=== PATIENT | female | born 1995 | race Two or more races ===

== ENCOUNTER 2020-10-04 14:56 | Outpatient (REF) | payer OTHER, SELFPAY ==
[2020-10-04 16:38] LABS: COVID-19 Test Negative (Negative)
== END 2020-10-04 14:57 | disposition home or self-care (01) ==
LOC: HO.EMPCOV 14:56
PROVIDERS: Visit Provider Internal Medicine
DX: Z20.822 Contact with and (suspected) exposure to COVID-19 (principal)
CPT/HCPCS: 36415; 87635; C9803

== ENCOUNTER 2021-08-25 18:54 | Outpatient (REF) | payer OTHER, SELFPAY ==
[2021-08-25 19:24] LABS: COVID-19 Test Negative (Negative)
== END 2021-08-25 18:55 | disposition home or self-care (01) ==
LOC: HO.LAB 18:54
PROVIDERS: PCP Internal Medicine; Visit Provider Internal Medicine
DX: Z20.822 Contact with and (suspected) exposure to COVID-19 (principal)
CPT/HCPCS: 36415; 87635

== ENCOUNTER 2021-09-27 07:57 | Outpatient (REF) | payer OTHER, SELFPAY ==
--- NOTE | 2021-09-27 13:12 | PFT_ITS ---
Forced vital capacity 90%, FEV1 97%, FEF 25/75 134%, and MVV is 93. Post bronchodilator therapy, no significant change. Total lung capacity 88%. Residual volume 69. Diffusion capacity 107. CONCLUSION: Normal pulmonary function test, and there is no significant obstructive or restrictive pulmonary disorder. MD LEXI Galicia/MODL / [id number]
== END 2021-09-27 07:58 | disposition home or self-care (01) ==
LOC: HO.RESP 07:57
PROVIDERS: PCP Internal Medicine; Visit Provider Internal Medicine Pulmonary Disease
DX: J45.909 Unspecified asthma, uncomplicated (principal); Z91.09 Other allergy status, other than to drugs and biological substances
CPT/HCPCS: 94060; 94727; 94729

== ENCOUNTER 2021-10-02 09:04 | Outpatient (REF) | payer OTHER, SELFPAY ==
[2021-10-02 10:05] LABS: MANUAL DIFF FLAG NO
[2021-10-02 10:46] LABS: Basophils Absolute Auto 0.1 X10*3/uL (0.0-0.2); Basophils Percent Auto 0.8 % (0-2); Eosinophils Absolute Auto 0.2 X10*3/uL (0.0-0.4); Hemoglobin 13.5 g/dl (12.0-16.0); Imm Gran Abs Auto 0.02 X10*3/uL (0.00-0.03); Imm Gran Pct Auto 0.3 % (0.0-0.4); Lymphocytes Absolute Auto 1.9 X10*3/uL (1.2-4.9); Lymphocytes Percent Auto 24.4 % (20-40); Mean Corpuscular HGB Conc 32.9 g/dl (31.0-35.0); Mean Corpuscular Hemoglobin 29.7 pg (27.0-33.0); Mean Corpuscular Volume 90.1 fL (80.0-98.0); Mean Platelet Volume 10.3 fL (9.4-12.3); Monocytes Absolute Auto 0.5 X10*3/uL (0.1-1.2); Monocytes Percent Auto 6.8 % (2-11); Neutrophils Percent Auto 64.7 % (45-73); Platelet Count 334 X10*3/uL (160-400); Red Blood Count 4.55 X10*6/uL (4.20-5.50); Red Cell Distribution Width 11.6 % (11.0-16.0); White Blood Count 7.7 X10*3/uL (4.8-10.8)
== END 2021-10-02 09:05 | disposition home or self-care (01) ==
LOC: HO.LAB 09:04
PROVIDERS: PCP Internal Medicine; Visit Provider Internal Medicine Pulmonary Disease
DX: J45.909 Unspecified asthma, uncomplicated (principal); Z91.09 Other allergy status, other than to drugs and biological substances
CPT/HCPCS: 36415; 82785; 85025; 86003

== ENCOUNTER 2022-01-17 08:19 | Outpatient (REF) | payer OTHER, SELFPAY | END 2022-01-17 08:20 | disposition home or self-care (01) | LOC: HO.MDS 08:19 | PROVIDERS: Visit Provider Internal Medicine Pulmonary Disease | DX: J45.50 Severe persistent asthma, uncomplicated (principal) | CPT/HCPCS: 96372; J2357 ==

== ENCOUNTER 2022-06-03 10:32 | Outpatient (REF) | payer OTHER, SELFPAY | END 2022-06-03 10:33 | disposition home or self-care (01) | LOC: HO.MDS 10:32 | PROVIDERS: Visit Provider Internal Medicine Pulmonary Disease | DX: J45.50 Severe persistent asthma, uncomplicated (principal) | CPT/HCPCS: 96372; J2357 ==

== ENCOUNTER 2022-07-01 10:48 | Outpatient (REF) | payer OTHER, SELFPAY | END 2022-07-01 10:49 | disposition home or self-care (01) | LOC: HO.MDS 10:48 | PROVIDERS: Visit Provider Internal Medicine Pulmonary Disease | DX: J45.50 Severe persistent asthma, uncomplicated (principal) | CPT/HCPCS: 96372; J2357 ==

== ENCOUNTER 2023-03-26 14:11 | Outpatient (AMB) | payer OTHER, SELFPAY ==
--- NOTE | 2023-03-26 14:15 | A.OFFVIS_ITS ---
Intake Vital Signs 03/26/23 14:16 Height 5 ft 5 in Weight 166 lb 7.184 oz BMI 27.7 BP 132/68 Blood Pressure Location Rt brachial Position Sitting Pulse 112 H Pulse Source Pulse Oximeter Pulse Oximetry (%) 98 Oxygen Delivery Method Room Air Intake Visit Reasons: Asthma Intake Note: Pt presents for a f/u and reports everything is going well. Wire Stitcher Required: No Allergies Sulfa (Sulfonamide Antibiotics) Allergy (Unknown, Verified 03/26/23 14:20) Unknown HPI Asthma HPI Details 28-year-old lady, nonsmoker, followed for underlying severe persistent asthma with significant allergic component. Patient's symptoms previously were well controlled on Xolair, Breo, and albuterol MDI. However, at this time Xolair has a very high co-pay and patient is not able to afford it. Thus, her symptoms are not as well controlled. Though she denies an acute exacerbation. [facility] Social History (Updated 03/26/23 @ 14:23 by Gayle Turpin [facility]) Patient Tobacco Use Status: Never used Tobacco Review of Systems Const Denies daytime sleepiness, Denies excessive sweating, Denies fatigue, Denies fever(s), Denies lethargy, Denies malaise, Denies night sweats, Denies snoring and Denies weight loss Eyes Denies blurry vision and Denies itchy eyes ENT Denies nasal congestion, Denies post nasal drip, Denies sinus pain, Denies sinus pressure and Denies other ( Thrush) Card Denies chest pain, Denies pedal edema, Denies dyspnea, Denies orthopnea and Denies paroxysmal nocturnal dyspnea Resp Denies cough, Denies hemoptysis, Denies excessive phlegm production, Denies dyspnea, Denies snoring and Denies wheezing GI Denies abdominal pain and Denies heartburn Musc Denies myalgias, Denies arthralgias and Denies joint swelling Skin/Breast Denies rash Neuro Denies memory loss and Denies seizure-like activity Psych Denies abnormal sleep pattern, Denies anxiety and Denies memory loss Endo Denies excessive sweating, Denies fatigue and Denies heat intolerance Brandon/Lymph Denies easy bruising Aller/Immun Denies itchy eyes, Denies seasonal rhinorrhea and Denies wheezing Physical Exam Vital Signs: Last Vital Signs Pulse 112 H 07/26/23 14:16 BP 132/68 03/26/23 14:16 Pulse Ox 98 03/26/23 14:16 Oxygen Delivery Method Room Air 03/26/23 14:16 BMI result Body Mass Index 27.7 Const General: no acute distress and alert Nutritional Appearance: not obese Orientation/consciousness: Other orientation findings ( oriented) HEENT Head: Yes atraumatic Eyes General: appearance normal, both eyes and all related structures Sclerae: sclerae normal EOM: EOMs intact bilaterally Neck Neck: Yes supple Lymphatic: no lymphadenopathy noted Resp Effort & Inspection: normal respiratory effort and no use of accessory muscles Auscultation: clear to auscultation bilaterally Cardio Rate: regular rate Rhythm: regular rhythm Heart sounds: no gallops, no murmurs and no rubs Skin General skin exam: other ( warm) Extrem General: No clubbing, No cyanosis and No edema Assessment & Plan Assessment & Plan (1) Asthma: Code(s): J45.909 - Unspecified asthma, uncomplicated Plan: Suboptimally controlled on Breo and albuterol MDI. Will request Xolair for home injections. (2) Environmental allergies: Code(s): Z91.09 - Other allergy status, other than to drugs and biological substances Plan: Suboptimal control. Will start on Singulair and request Xolair for home injections. Medications: New montelukast 10 mg PO DAILY 30 days 30 tabs 6RF Changed From fluticasone furoate-vilanterol 200-25 mcg/dose (Breo Ellipta) 1 ea PO DAILY 60 ea 0RF To Breo Ellipta 200-25 mcg/dose (fluticasone furoate-vilanterol) 1 ea PO DAILY 30 days 1 ea 12RF NS From albuterol sulfate 90 mcg/actuation (ProAir HFA) 2 puffs inhalation QID To albuterol sulfate 90 mcg/actuation (ProAir HFA) 2 puffs inhalation QID 30 days 1 ea 12RF Coding Level of Care Code Est Pt Level 4 (17527) Diagnoses Asthma J45.909 Environmental allergies Z91.09
[2023-03-26 14:16] VITALS: BP 132/68; PULSE 112; O2SAT 98; BMI 27.7
== END 2023-03-26 14:30 | disposition home or self-care (01) ==
PROVIDERS: PCP Internal Medicine; Visit Provider Internal Medicine Pulmonary Disease
DX: J45.909 Unspecified asthma, uncomplicated (principal); Z91.09 Other allergy status, other than to drugs and biological substances
CPT/HCPCS: 99214

== ENCOUNTER → 2023-03-26 14:11 | Outpatient (BNVA) | payer OTHER, SELFPAY | PROVIDERS: PCP Internal Medicine; Visit Provider Internal Medicine Pulmonary Disease ==

== ENCOUNTER 2024-01-16 14:25 | Outpatient (AMB) | payer OTHER, SELFPAY ==
[2024-01-16 14:30] VITALS: BP 126/78; PULSE 100; O2SAT 99; BMI 29.0
--- NOTE | 2024-01-16 14:30 | MHC.OFFVIS ---
Vital Signs 01/16/24 14:30 Height 5 ft 5 in Weight 174 lb 2.643 oz BMI 29.0 BP 126/78 Blood Pressure Location Rt brachial Position Sitting Pulse 100 Pulse Source Doppler Pulse Oximetry (%) 99 Oxygen Delivery Method Room Air Intake Visit Reasons: asthma Allergies Sulfa (Sulfonamide Antibiotics) Allergy (Unknown, Verified 03/26/23 14:20) Unknown HPI HPI asthma: Details: 28-year-old lady, nonsmoker, followed for underlying severe persistent asthma with significant allergic component. Patient's symptoms previously were well controlled on Xolair, Breo, and albuterol MDI. Patient has recently ran out of Xolair and for the last 2 months she states that her symptoms been still controlled on Breo and albuterol MDI with Singulair. She denies recent exacerbations. [facility] Social History (Updated 03/26/23 @ 14:23 by Gayle Turpin [facility]) Patient Tobacco Use Status: Never used Tobacco Review of Systems Const Denies daytime sleepiness, Denies excessive sweating, Denies fatigue, Denies fever(s), Denies lethargy, Denies malaise, Denies night sweats, Denies snoring and Denies weight loss Eyes Denies blurry vision and Denies itchy eyes ENT Denies nasal congestion, Denies post nasal drip, Denies sinus pain, Denies sinus pressure and Denies other ( Thrush) Card Denies chest pain, Denies pedal edema, Denies dyspnea, Denies orthopnea and Denies paroxysmal nocturnal dyspnea Resp Denies cough, Denies hemoptysis, Denies excessive phlegm production, Denies dyspnea, Denies snoring and Denies wheezing GI Denies abdominal pain and Denies heartburn Musc Denies myalgias, Denies arthralgias and Denies joint swelling Skin/Breast Denies rash Neuro Denies memory loss and Denies seizure-like activity Psych Denies abnormal sleep pattern, Denies anxiety and Denies memory loss Endo Denies excessive sweating, Denies fatigue and Denies heat intolerance Brandon/Lymph Denies easy bruising Aller/Immun Denies itchy eyes, Denies seasonal rhinorrhea and Denies wheezing Physical Exam Vital Signs: Last Vital Signs Pulse 100 01/16/24 14:30 BP 126/78 01/16/24 14:30 Pulse Ox 99 05/17/24 14:30 Oxygen Delivery Method Room Air 05/17/24 14:30 BMI result Body Mass Index 29.0 Const General: no acute distress and alert Nutritional Appearance: not obese Orientation/consciousness: Other orientation findings ( oriented) HEENT Head: Yes atraumatic Eyes General: appearance normal, both eyes and all related structures Sclerae: sclerae normal EOM: EOMs intact bilaterally Neck Neck: Yes supple Lymphatic: no lymphadenopathy noted Resp Effort & Inspection: normal respiratory effort and no use of accessory muscles Auscultation: clear to auscultation bilaterally Cardio Rate: regular rate Rhythm: regular rhythm Heart sounds: no gallops, no murmurs and no rubs Skin General skin exam: other ( warm) Extrem General: No clubbing, No cyanosis and No edema Assessment & Plan Assessment & Plan (1) Asthma: Code(s): J45.909 - Unspecified asthma, uncomplicated Category: Medical Plan: Now well controlled on Breo, Singulair, and albuterol MDI. Continue current regimen. Will hold off on continuation of Xolair this time. (2) Environmental allergies: Code(s): Z91.09 - Other allergy status, other than to drugs and biological substances Category: Medical Plan: Well controlled on Singulair. If control lapses, will consider restarting Xolair. Coding Level of Care Code Est Pt Level 4 (04252) Diagnoses Asthma J45.909 Environmental allergies Z91.09
== END 2024-01-16 14:45 | disposition home or self-care (01) ==
PROVIDERS: PCP Internal Medicine; Visit Provider Internal Medicine Pulmonary Disease
DX: J45.909 Unspecified asthma, uncomplicated (principal); Z91.09 Other allergy status, other than to drugs and biological substances
CPT/HCPCS: 99214

== ENCOUNTER → 2024-01-16 14:25 | Outpatient (BNVA) | payer OTHER, SELFPAY | PROVIDERS: PCP Internal Medicine; Visit Provider Internal Medicine Pulmonary Disease ==

== ENCOUNTER 2025-03-17 13:14 | Outpatient (AMB) | payer OTHER, SELFPAY ==
[2025-03-17 13:15] VITALS: BP 112/72; PULSE 103; O2SAT 99; BMI 31.6
--- NOTE | 2025-03-17 13:15 | MHC.OFFVIS ---
Vital Signs 03/17/25 13:15 Height 5 ft 5 in Weight 190 lb BMI 31.6 BP 112/72 Blood Pressure Location Rt brachial Position Sitting Pulse 103 H Pulse Source Pulse Oximeter Pulse Oximetry (%) 99 Oxygen Delivery Method Room Air Intake Visit Reasons: Asthma Allergies Sulfa (Sulfonamide Antibiotics) Allergy (Unknown, Verified 03/17/25 13:18) Unknown HPI HPI Asthma: Details: 30-year-old lady, nonsmoker, followed for underlying severe persistent asthma with significant allergic component. Patient's symptoms previously were well controlled on Xolair, Breo, and albuterol MDI. However she has not used Xolair for the last 12 months and her symptoms remain still well controlled on Breo, Singulair, and albuterol MDI. She denies recent exacerbations. [facility] Social History (Updated 03/26/23 @ 14:23 by Gayle Turpin [facility]) Patient Tobacco Use Status: Never used Tobacco Review of Systems Const Denies daytime sleepiness, Denies excessive sweating, Denies fatigue, Denies fever(s), Denies lethargy, Denies malaise, Denies night sweats, Denies snoring and Denies weight loss Eyes Denies blurry vision and Denies itchy eyes ENT Denies nasal congestion, Denies post nasal drip, Denies sinus pain, Denies sinus pressure and Denies other ( Thrush) Card Denies chest pain, Denies pedal edema, Denies dyspnea, Denies orthopnea and Denies paroxysmal nocturnal dyspnea Resp Denies cough, Denies hemoptysis, Denies excessive phlegm production, Denies dyspnea, Denies snoring and Denies wheezing GI Denies abdominal pain and Denies heartburn Musc Denies myalgias, Denies arthralgias and Denies joint swelling Skin/Breast Denies rash Neuro Denies memory loss and Denies seizure-like activity Psych Denies abnormal sleep pattern, Denies anxiety and Denies memory loss Endo Denies excessive sweating, Denies fatigue and Denies heat intolerance Brandon/Lymph Denies easy bruising Aller/Immun Denies itchy eyes, Denies seasonal rhinorrhea and Denies wheezing Physical Exam Vital Signs: Last Vital Signs Pulse 103 H 03/17/25 13:15 BP 112/72 03/17/25 13:15 Pulse Ox 99 03/17/25 13:15 Oxygen Delivery Method Room Air 03/17/25 13:15 BMI result Body Mass Index 31.6 Const General: no acute distress and alert Nutritional Appearance: not obese Orientation/consciousness: Other orientation findings ( oriented) HEENT Head: Yes atraumatic Eyes General: appearance normal, both eyes and all related structures Sclerae: sclerae normal EOM: EOMs intact bilaterally Neck Neck: Yes supple Lymphatic: no lymphadenopathy noted Resp Effort & Inspection: normal respiratory effort and no use of accessory muscles Auscultation: clear to auscultation bilaterally Cardio Rate: regular rate Rhythm: regular rhythm Heart sounds: no gallops, no murmurs and no rubs Skin General skin exam: other ( warm) Extrem General: No clubbing, No cyanosis and No edema Assessment & Plan Assessment & Plan (1) Asthma: Code(s): J45.909 - Unspecified asthma, uncomplicated Category: Medical Plan: Well controlled on Breo and albuterol MDI. Continue current regimen. (2) Environmental allergies: Code(s): Z91.09 - Other allergy status, other than to drugs and biological substances Category: Medical Plan: Still with reasonable control off Xolair. Continue on as needed Singulair. Medications: Refilled Breo Ellipta 200-25 mcg/dose (fluticasone furoate-vilanterol) 1 ea PO DAILY 1 ea 12RF 30 days NS albuterol sulfate 90 mcg/actuation (ProAir HFA) 2 puffs inhalation QID 1 ea 12RF 30 days Coding Level of Care Code Est Pt Level 4 (23226) Diagnoses Asthma J45.909 Environmental allergies Z91.09
== END 2025-03-17 13:39 | disposition home or self-care (01) ==
LOC: HO.HPS 13:14
PROVIDERS: PCP Internal Medicine; Visit Provider Internal Medicine Pulmonary Disease
DX: J45.909 Unspecified asthma, uncomplicated (principal); Z91.09 Other allergy status, other than to drugs and biological substances
CPT/HCPCS: 99214